=== PATIENT | female | born 1955 | race Caucasian/White ===

== ENCOUNTER 2019-03-18 12:38 | Emergency (ER) | payer OTHER, SELFPAY ==
--- NOTE | ~2019-03-18 | XR_ITS ---
EXAMINATION: XR ribs LT 2V w CXR 2V EXAM DATE: 03/18/2019 13:27 INDICATION: Initial encounter following injury, with pain of the left rib, scapula pain. Fall. TECHNIQUE: Frontal projection of the upper left ribs, frontal projection of the lower left ribs, obli que projection of the left ribs, frontal and lateral chest x-ray(s) for interpretation. Correlation i s made to chest x-ray 04/04/2010. FINDINGS: There is acute left fourth rib fracture posterolaterally. Closed, posttraumatic finding. No confluent consolidation, pneumothorax or pleural effusion suspected. Left scapula unremarkable. Ther e are bony degenerative changes. Mild left shoulder primary osteoarthritis. Cardiomediastinal silhoue tte is normal. IMPRESSION: Acute left fourth rib fracture posterolaterally. Reviewed, dictated and finalized at location A. [employer]
[2019-03-18 12:50] VITALS: BP 155/87; PULSE 118; RESP 22; TEMP 36.1; O2SAT 100
--- NOTE | 2019-03-18 13:15 | ED.BACK ---
HPI - Back Pain/Injury General Chief Complaint: Back Pain/Injury Stated Complaint: upper back pain Time Seen by Provider: 03/18/19 13:16 Source: patient Mode of arrival: ambulatory Limitations: no limitations History of Present Illness HPI Narrative: Patient presents with upper back pain. Patient states 3 months ago she slipped down 5 steps at her daughter's house injuring her upper back. Patient presents today with left scapula and rib pain. No shortness of breath no chest pain no pain with inspiration no bruising no deformity no open areas noted. Patient does not take anything for pain or discomfort. MD elicited complaint: fall (3 months ago fell down 5 stairs) Severity: mild Related Data Home Medications Medication Instructions Recorded Confirmed No Home Medications 03/18/19 03/18/19 Allergies Allergy/AdvReac Type Severity Reaction Status Date / Time No Known Allergies Allergy Verified 03/18/19 13:19 Review of Systems Review of Systems: Narrative: CONSTITUTIONAL: Denies fever, chills, or sweats. EYES: Denies visual changes, redness, or discharge. ENT: Denies rhinorrhea, congestion, sore throat, or otalgia. CARDIOVASCULAR: Denies chest pain, palpitations, or edema. RESPIRATORY: Denies cough or dyspnea. GASTROINTESTINAL: Denies abdominal pain, nausea, vomiting, or diarrhea. GENITOURINARY: Denies dysuria or hematuria. SKIN: Denies rash or itching. MUSCULOSKELETAL: Denies back pain, joint pain, or myalgia. Reports left scapula and left rib pain NEUROLOGIC: Denies headache, numbness, or weakness. PSYCHIATRIC: Denies anxiety or depression. All systems reviewed & are unremarkable except as noted in HPI and below PMFSH Family History Family History Other Family history of malignant neoplasm of breast in first degree relative Hypertension Social History Social History Smoking status: Never smoker Second hand tobacco smoke exposure: No Alcohol intake: never Comments At time of signature, agree with nursing past medical, surgical, social and family history. There is no relevant family history pertinent to the presenting complaint Exam Narrative: Exam Narrative: GENERAL: Well-appearing, well-nourished, and in no acute distress. HEAD: Normocephalic, atraumatic. EYES: PERRLA and EOMI. ENT: Nares clear, no rhinorrhea or epistaxis. Mucous membranes moist. NECK: Supple. CHEST: Clear to auscultation. No respiratory distress. HEART: Regular rate and rhythm. No murmur heard. Normal peripheral pulses. ABDOMEN: Soft, nontender, nondistended, normal active bowel sounds. EXTREMITIES: Normal range of motion. No edema. SPINE MIDLINE. NO CURVATURE APPARENT. NO VERTEBRAL POINT SPECIFIC TENDERNESS. NO DEFORMITY. NO STEP-OFFS. NORMAL LE STRENGTH BILATERALLY. NORMAL LE SENSATION BILATERALLY. ABLE TO WALK ON TOES AND HEELS WITH NORMAL DORSIFLEXION AND PLANTAR FLEXION STRENGTH. NO WEAKNESS OBSERVED WITH GAIT. - PARASPINAL MUSCLE TENDERNESS. - SI JOINT TENDERNESS. FLEXION AND EXTENSION ROM NO SWELLING, BRUISING, SKIN CHANGES. SKIN INTACT. NORMAL RADIAL PULSE. NO DEFORMITY OF SHOULDER. NO CLAVICLE TENDERNESS. NORMAL UE SENSATION AND STRENGTH. ROM EVALUATED - CAN RAISE UE ABOVE SHOULDER, CAN ABDUCT, ADDUCT, EXTERNALLY ROTATE AND CAN INTERNALLY ROTATE AND RAISE THUMB UP THE SPINE. NO AC JOINT TENDERNESS, CAN CROSS ARM HORIZONTALLY AND PLACE HAND ON OPPOSITE SHOULDER, NO WINGING OF THE SCAPULA. SUPRASPINATUS APPEARS NORMAL WITH ARMS STRAIGHT OUT AT 30 DEGREES, THUMB DOWN , CAN ABDUCT AGAINST RESISTANCE. SKIN: Warm, dry, no rash. NEURO: No focal deficits. Alert and oriented x3. Real Coma Scale Eye Opening: Spontaneous 4 Real Coma Scale Motor: Obeys Commands 6 [place] Coma Scale Verbal: Oriented 5 Real Coma Scale Total 15 Course Vital Signs Vital signs: Vital Signs Temperature 36.1 C L 03/18/19 12:50 Pulse Rate
== END 2019-03-18 14:00 | disposition home or self-care (01) ==
PROVIDERS: Emergency Provider Nurse Practitioner Family
DX: G89.29 Other chronic pain (principal); M54.6 Pain in thoracic spine; S22.32XA Fracture of one rib, left side, initial encounter for closed fracture; W10.9XXA Fall (on) (from) unspecified stairs and steps, initial encounter; S20.222A Contusion of left back wall of thorax, initial encounter; I10 Essential (primary) hypertension; Z85.42 Personal history of malignant neoplasm of other parts of uterus; Z92.21 Personal history of antineoplastic chemotherapy
CPT/HCPCS: 71045; 71101; 99203; G0463

== ENCOUNTER 2019-09-23 12:31 | Emergency (ER) | payer OTHER, SELFPAY ==
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
[2019-09-23 12:50] VITALS: BP 143/85; PULSE 114; RESP 20; TEMP 36.5
== END 2019-09-23 12:56 | disposition left against medical advice (07) ==
PROVIDERS: Emergency Provider Nurse Practitioner Family
DX: R10.30 Lower abdominal pain, unspecified (principal)
CPT/HCPCS: 99211; G0463